=== PATIENT | male | born 1980 | race African-American/Black ===

== ENCOUNTER 2017-01-16 14:03 | Emergency (ER) | payer OTHER ==
[2017-01-16] MEDS ORDERED: cefTRIAXone 250 MG in Lidocaine 1% 1 ML IM ONE (14:56)
[2017-01-16] MEDS ORDERED: Azithromycin 250 MG Tab PO ONE (14:57)
--- NOTE | 2017-01-16 15:02 | EDM.PDOC ---
ED HPI GENERAL MEDICAL PROBLEM - General Chief Complaint: General Stated Complaint: POSSIBLE INFECTION Time Seen by Provider: 01/16/17 14:52 - History of Present Illness INITIAL COMMENTS - FREE TEXT/NARRATIVE: HISTORY AND PHYSICAL: History of present illness: The patient is a 36-year-old male with no systemic complaints or presents after being told by his girlfriend that she had an infection and that he needed to be treated and checked out. Patient has no urinary issues such as frequency dysuria and has no penile discharge no testicular pain or swelling no abdominal pain nausea vomiting or fevers. Patient states that he uses condoms all the time. Patient is unsure of what type of infection she had or what medication she has received. Review of systems: As per history of present illness and below otherwise all systems reviewed and negative. Past medical history: As per history of present illness and as reviewed below otherwise noncontributory. Surgical history: As per history of present illness and as reviewed below otherwise noncontributory. Social history: No reported history of drug or alcohol abuse. Family history: As per history of present illness and as reviewed below otherwise noncontributory. Physical exam: Gen.: Well-developed well-nourished male who is nontoxic and vital signs been reviewed by me. HEENT: Atraumatic, normocephalic, negative for conjunctival pallor or scleral icterus, mucous membranes moist, throat clear, neck supple, nontender, trachea midline. Lungs: Clear to auscultation, breath sounds equal bilaterally, chest nontender. Heart: S1S2, regular rate and rhythm no overt murmurs Abdomen: Soft, nondistended, nontender. NABS. Pelvis: Stable nontender. Genitourinary: Deferred. Rectal: Deferred. Extremities: Atraumatic, negative for cords or calf pain. Neurovascular unremarkable. Neuro: Awake, alert, oriented. Cranial nerves II through XII unremarkable. Cerebellum unremarkable. Motor and sensory unremarkable throughout. Exam nonfocal. Diagnostics: Urine for gonorrhea and chlamydia per patient request Therapeutics: Rocephin Zithromax The patient states that he wants to be both tested and treated. I've advised him on follow-up Impression: Possible exposure to STD, asymptomatic Definitive disposition and diagnosis as appropriate pending reevaluation and review of above. - Related Data Allergies Allergy/AdvReac Type Severity Reaction Status Date / Time No Known Allergies Allergy Verified 01/16/17 14:26 Home Meds: Home Meds . [No Known Home Meds] 01/16/17 [History] Past Medical History - Past Health History Medical/Surgical History: Denies Medical/Surgical History Social & Family History - Tobacco Use Smoking Status *Q: Never Smoker Second Hand Smoke Exposure: No - Caffeine Use Caffeine Use: Reports: None - Recreational Drug Use Recreational Drug Use: No ED ROS GENERAL - Review of Systems Review Of Systems: ROS reveals no pertinent complaints other than HPI. ED EXAM, GENERAL - Physical Exam Exam: See Below (See dictation) Course - Vital Signs Last Recorded V/S: Last Vital Signs Temp 36.4 C 01/16/17 14:20 Pulse 68 01/16/17 14:20 Resp 18 01/16/17 14:20 BP 141/90 H 01/16/17 14:20 Pulse Ox 98 01/16/17 14:20 - Orders/Labs/Meds Orders: Active Orders 24 hr Category Date Time Status CHLAMYDIA AND GONORRHEA BY TMA Stat Lab 01/16/17 14:57 Ordered Azithromycin [Zithromax] Med 01/16/17 14:57 Once 1,000 mg PO ONETIME ONE cefTRIAXone [Rocephin] 250 mg Med 01/16/17 14:56 Ordered Lidocaine 1% [Xylocaine-MPF 1%] 1 ml IM ONETIME Medication Orders Ceftriaxone Sodium 250 mg/ (Lidocaine HCl) 1 mls @ 1 mls/sec IM ONETIME ONE Stop: 01/16/17 14:57 Meds: Medications Generic Name Dose Route Start Last Admin Trade Name Chato PRN Reason Stop Dose Admin Ceftriaxone Sodium 250 mg/ 1 mls @ 1 mls/sec 01/16/17 14:56 Lidocaine HCl IM 01/16/17 14:57 ONETIME ONE Departure - Departure Time of Disposition: 15:01 Disposition: Home, Self-Care 01 Condition: Good Clinical Impression: Possible exposure to STD - Discharge Information Referrals: PCP,None [Primary Care Provider] - Additional Instructions: The following information is given to patients seen in the emergency department who are being discharged to home. This information is to outline your options for follow-up care. We provide all patients seen in our emergency department with a follow-up referral. The need for follow-up, as well as the timing and circumstances, are variable depending upon the specifics of your emergency department visit. If you don't have a primary care physician on staff, we will provide you with a referral. We always advise you to contact your personal physician following an emergency department visit to inform them of the circumstance of the visit and for follow-up with them and/or the need for any referrals to a consulting specialist. The emergency department will also refer you to a specialist when appropriate. This referral assures that you have the opportunity for followup care with a specialist. All of these measure are taken in an effort to provide you with optimal care, which includes your followup. Under all circumstances we always encourage you to contact your private physician who remains a resource for coordinating your care. When calling for followup care, please make the office aware that this follow-up is from your recent emergency room visit. If for any reason you are refused follow-up, please contact the [facility] emergency department at and ask to speak to the emergency department charge nurse. [facility] Primary care- [place] [address] Please refrain from sexual intercourse for the next 3 days and then use condoms afterwards. He will be contacted about your testing results next week if they are positive. You have been treated for both gonorrhea and chlamydia prophylactically. Push hydration and return to ER as needed and as discussed. Please call and follow-up in our clinic - My Orders Last 24 Hours: My Active Orders 01/16/17 14:56 cefTRIAXone [Rocephin] 250 mg Lidocaine 1% [Xylocaine-MPF 1%] 1 ml IM ONETIME 01/16/17 14:57 CHLAMYDIA AND GONORRHEA BY TMA Stat Azithromycin [Zithromax] 1,000 mg PO ONETIME ONE - Assessment/Plan Last 24 Hours: My Active Orders 01/16/17 14:56 cefTRIAXone [Rocephin] 250 mg Lidocaine 1% [Xylocaine-MPF 1%] 1 ml IM ONETIME 01/16/17 14:57 CHLAMYDIA AND GONORRHEA BY TMA Stat Azithromycin [Zithromax] 1,000 mg PO ONETIME ONE
[2017-01-16 17:27] VITALS: BP 123/80
== END 2017-01-16 15:33 | disposition home or self-care (01) ==
LOC: MW.ED 14:03
DX: Z20.2 Contact with and (suspected) exposure to infections with a predominantly sexual mode of transmission (principal)
CPT/HCPCS: 96372; 99283; A9270; J0696; 87491; 87591; 99282

== ENCOUNTER 2019-12-27 10:12 | Day surgery (SDC) | payer SELFPAY ==
[~2019-12-27 10:12] MED LIST: Acetaminophen 1,000 MG in Premix Bag 1 BAG IV PRN; Lactated Ringers 1,000 ML IV SCH; fentaNYL 100 MCG/2 ML SDV IVPUSH PRN
[2019-12-27] MEDS ORDERED: Ketorolac 30 MG/ML SDV ONE (10:25)
[2019-12-27] MEDS ORDERED: fentaNYL 100 MCG/2 ML SDV ONE ×2 (10:25→13:17)
[2019-12-27] MEDS ORDERED: Ondansetron 4 MG/2 ML SDV ONE (10:25)
[2019-12-27] MEDS ORDERED: Lidocaine 2% 5 ML SDV ONE (10:25)
[2019-12-27] MEDS ORDERED: Glycopyrrolate 0.2 MG/ML SDV ONE (10:25)
[2019-12-27] MEDS ORDERED: Midazolam 1 MG/ML 2 ML SDV ONE (10:25)
[2019-12-27] MEDS ORDERED: Propofol 200 MG/20 ML SDV ONE (10:25)
--- NOTE | 2019-12-27 11:11 | PCM.PREANE ---
Preanesthetic Assessment - Anesthesia/Transfusion/Family Hx Anesthesia History: No Prior Anesthesia Family History of Anesthesia Reaction: No Transfusion History: No Prior Transfusion(s) Intubation History: Unknown - Review of Systems General: No Symptoms Pulmonary: No Symptoms Cardiovascular: No Symptoms Gastrointestinal: No Symptoms Neurological: No Symptoms Other: Reports: None - Physical Assessment Height: 5 ft 8 in Weight: 77.111 kg ASA Class: 1 Mental Status: Alert & Oriented x3 Airway Class: Mallampati = 1 Dentition: Reports: Normal Dentition Thyro-Mental Finger Breadths: 3 Mouth Opening Finger Breadths: 3 ROM/Head Extension: Full Lungs: Clear to Auscultation, Normal Respiratory Effort Cardiovascular: Regular Rate, Regular Rhythm - Allergies Allergies/Adverse Reactions: Allergies Allergy/AdvReac Type Severity Reaction Status Date / Time No Known Allergies Allergy Verified 12/23/19 14:01 - Blood Blood Available: No - Anesthesia Plan Pre-Op Medication Ordered: None - Acknowledgements Anesthesia Type Planned: General Anesthesia Pt an Appropriate Candidate for the Planned Anesthesia: Yes Alternatives and Risks of Anesthesia Discussed w Pt/Guardian: Yes Pt/Guardian Understands and Agrees with Anesthesia Plan: Yes PreAnesthesia Questionnaire - Past Health History Medical/Surgical History: Denies Medical/Surgical History Genitourinary History: 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 [No Known Home Meds] 01/16/17 [History] - CURRENT (IN HOUSE) MEDS Current Meds: Current Medications Fentanyl (Sublimaze) 50 mcg IVPUSH Q5M PRN PRN Reason: Pain Lactated Ringer's (Ringers, Lactated) 1,000 mls @ 125 mls/hr IV ASDIRECTED [facility] Last Admin: 12/27/19 11:07 Dose: 125 mls/hr Documented by: Acetaminophen 1,000 mg/ Premix 100 mls @ 400 mls/hr IV Q6H PRN PRN Reason: Pain Discontinued Medications Fentanyl (Sublimaze) Confirm Administered Dose 100 mcg .ROUTE .STK-MED ONE Stop: 12/27/19 10:26 Glycopyrrolate (Robinul) Confirm Administered Dose 0.2 mg .ROUTE .STK-MED ONE Stop: 12/27/19 10:26 Ketorolac Tromethamine (Toradol) Confirm Administered Dose 30 mg .ROUTE .STK-MED ONE Stop: 12/27/19 10:26 Lidocaine (Xylocaine-Mpf 2%) Confirm Administered Dose 5 ml .ROUTE .STK-MED ONE Stop: 12/27/19 10:26 Midazolam HCl (Versed 1 Mg/Ml) Confirm Administered Dose 2 mg .ROUTE .STK-MED ONE Stop: 12/27/19 10:26 Ondansetron HCl (Zofran) Confirm Administered Dose 4 mg .ROUTE .STK-MED ONE Stop: 12/27/19 10:26 Propofol (Diprivan 20 Ml) Confirm Administered Dose 200 mg .ROUTE .STK-MED ONE Stop: 12/27/19 10:26
[2019-12-27] MEDS ORDERED: ceFAZolin 1 GM Vial ONE (13:48)
[2019-12-27] MEDS ORDERED: Sodium Chloride 0.9% 20 ML ONE (13:48)
--- NOTE | 2019-12-27 14:27 | PCM.POSTAN ---
POST ANESTHESIA ASSESSMENT - MENTAL STATUS Mental Status: Alert, Oriented - VITAL SIGNS Vital Signs: Last Vital Signs Temp 36.4 C 12/27/19 14:01 Pulse 92 12/27/19 14:22 Resp 9 L 12/27/19 14:22 BP 121/78 12/27/19 14:17 Pulse Ox 94 L 12/27/19 14:22 - RESPIRATORY Respiratory Status: Respiratory Rate WNL, Airway Patent, O2 Saturation Stable - CARDIOVASCULAR CV Status: Pulse Rate WNL, Blood Pressure Stable - GASTROINTESTINAL GI Status: No Symptoms - PAIN Pain Score: 0 - POST OP HYDRATION Hydration Status: Adequate & Stable - OBSERVATIONS Free Text/Narrative:: No anesthesia problems
--- NOTE | 2019-12-27 15:00 | PCM48HPAN ---
Post Anesthesia Note - EVALUATION WITHIN 48HRS OF ANESTHETIC Vital Signs in Normal Range: Yes Patient Participated in Evaluation: Yes Respiratory Function Stable: Yes Airway Patent: Yes Cardiovascular Function Stable: Yes Hydration Status Stable: Yes Pain Control Satisfactory: Yes (2/10 at rest) Nausea and Vomiting Control Satisfactory: Yes (No nausea after eating toast.) Mental Status Recovered: Yes Vital Signs: Last Vital Signs Temp 36.4 C 12/27/19 14:01 Pulse 92 12/27/19 14:22 Resp 9 L 12/27/19 14:22 BP 121/78 12/27/19 14:17 Pulse Ox 94 L 12/27/19 14:22
[2019-12-27 15:23] VITALS: BP 131/84; PULSE 77
--- NOTE | 2019-12-27 15:51 | OR ---
SURGEON: Gurjit Foster M.D. DATE OF PROCEDURE: 12/27/2019 PREOPERATIVE DIAGNOSIS: Left-sided varicocele with stress pattern. POSTOPERATIVE DIAGNOSIS: Left-sided varicocele with stress pattern. OPERATION: Left spermatic vein ligation. DESCRIPTION OF PROCEDURE: The patient was given general anesthesia. He was in the supine position. External genitalia and lower abdomen were all prepped and draped in sterile drapes. A left groin incision was made, carried through Krystle's fascia and the external oblique aponeurosis. The cord structures were identified and isolated. The spermatic vein was eventually located. It was one large vein. The ends were ligated and the piece was submitted, 2-0 silk was used for that. The cord structures were put back in place. The external oblique aponeurosis was then closed loosely with 3-0 silk sutures. The subcutaneous tissues were reapproximated with 3-0 chromic and skin was closed with swapna. The patient tolerated the procedure well and was moved to recovery room in good condition. CLARKE / ABE /[id number]
== END 2019-12-27 15:07 | disposition home or self-care (01) ==
LOC: MW.SDS 10:12
PROVIDERS: ATTEND Urology
DX: I86.1 Scrotal varices (principal)
CPT/HCPCS: 55535; J0690; J1885; J2001; J2250; J2405; J2704; J3010; J3490; J7120; 00860